=== PATIENT | male | born 1980 | race Caucasian/White ===

== ENCOUNTER → 2017-10-25 | Outpatient (CLI) | payer BC, OTHER | END | disposition home or self-care (01) | LOC: PCVCIMAG 16:47 | DX: I42.9 Cardiomyopathy, unspecified (principal) | CPT/HCPCS: 93306 ==

== ENCOUNTER → 2018-12-31 | Outpatient (CLI) | payer BC ==
--- NOTE | 2019-01-06 09:39 | PCVCIMAG ---
APPROVED REPORT Patient Location: Echo lab- [facility] Room #: 2 Stress Nurse: Melita Decker RN INDICATIONS: Hypertrophic obstructive cardiomyopathy; test for exercise capacity The patient exercised according to the HOMER protocol for 9:50 mins; achieving a work level of 12.8 METS. The resting heart rate of 70 bpm cipriano to a maximum heart rate of 126 bpm. This value represents 69% of the maximal, age-predicted heart rate. The resting blood pressure of 106/62 mmHg, cipriano to a maximum blood pressure of 140/66 mmHg. The exercise test was stopped due to fatigue . Conclusion 1. Stress ECG response, nonischemic. 2. Clinical response, nonischemic. 3. Exercise capacity, above average. 4. Suboptimal study due to target heart rate not achieved.
== END | disposition home or self-care (01) ==
LOC: PCVCIMAG 14:54
PROVIDERS: ATTEND Internal Medicine Cardiovascular Disease
DX: I47.2 Ventricular tachycardia (principal); I42.2 Other hypertrophic cardiomyopathy; I34.0 Nonrheumatic mitral (valve) insufficiency
CPT/HCPCS: 93017